=== PATIENT | female | born 1985 | race Caucasian/White ===

== ENCOUNTER 2024-07-02 16:17 | Emergency (ER) | payer BC, SELFPAY ==
[2024-07-02 16:17] VITALS: BMI 28.1
[2024-07-02 16:24] VITALS: BP 173/98
[2024-07-02 16:52] LABS: COVID-19 Antigen Negative (Negative)
--- NOTE | 2024-07-02 17:13 | ED.GENMED ---
History of Present Illness
General
Chief Complaint: Cough
Source: patient
Exam Limitations: none
Time Seen by Provider: 07/02/24 17:12
Nursing documentation reviewed up to this point in time: agreed with
History of Present Illness
History of Present Illness:
38-year-old female presents to the ER for evaluation. Patient reports on Monday 2 days ago she started not feeling well and yesterday started with mild cough. She reports she did not feel right which the prompted her to go to urgent care. She
complains of soreness/pain to her back. She denies any actual shortness of breath. While in urgent care heart was found and very elevated she was sent here to the ER to rule out PE.
She had a low-grade fever here in triage of 100.2. She denies any nasal congestion runny nose. She does have mild cough. She is on control
she does not smoke.
No prior history of DVT PE no familial history of DVT or clotting disorder.
Past History
Past History
ED Past Medical History: None
ED Past Surgical History: and Gynecological (Laparoscopy for embedded intrauterine device)
Social History
Tobacco: Non-smoker
Drug: None
Personal:
Living: with family
Family History
Family History: Other (mother has vertigo)
Review of Systems
Review of Systems
Allergies reviewed?: Yes
All Other Systems: ROS reviewed and negative except as documented in HPI and ROS
Constitutional: Reports no symptoms
Respiratory: Reports cough; Denies trouble breathing
Cardiac: Reports no symptoms; Denies chest pain
ABD/GI: Denies abdominal pain, nausea, vomiting or diarrhea
Musculoskeletal: Reports back pain
Skin: Reports no symptoms
Neurological: Reports no symptoms
Psychiatric: Reports no symptoms
Phy Exam
General Physical Exam
General Presentation: no apparent distress
General age: appears stated age
General Skin: warm and dry
General Habitus: normal
General Mental: alert
General Hydration: appears well hydrated
Cardiovascular Exam
Cardiovascular Exam: no murmur and tachycardia
Pulmonary Exam
Pulmonary Exam: lungs clear and no respiratory distress
Neurological Exam
Neurological Exam: alert and oriented x3
[place] Coma Scale
Eye Opening: Spontaneous
Verbal Response: Oriented
Motor Response: Obeys Commands
GCS Total Score: 15
Musculoskeletal Exam
Musculoskeletal Exam: full ROM
Skin Exam
Skin Exam: normal color and warm/dry
Psychiatric Exam
Psychiatric Exam: normal mood/affect
Course
Orders/Labs/Results
Orders:
Orders
07/02/24 16:18
EKG [Electrocardiogram (*1)] Urgent
Reason for Study: Shortness of Breath
EKG- Treatment ONCE
07/02/24 16:29
COVID-19 Antigen Urgent
Source: Nasal Swab
Influenza A+B Rapid Molecular Urgent
JINA Source: Nasal Swab
Specimen Description:
07/02/24 17:22
CT Chest Pe Study Urgent
Comment:
Reason For Exam: back pain elevated hr
Cardiac Monitoring- Treatment ONCE
IV Insert/Care/Rem.- Treatment PRN
0.9% Sodium Chloride 1000 ml [Nss] 1,000 ml IV BOLUS
07/02/24 17:23
Test Result ONCE
07/02/24 17:51
Complete Blood Count/With Diff Urgent
Comprehensive Metabolic Panel Urgent
HCG, Serum Qualitative Screen Urgent
07/02/24 18:18
Ondansetron Injectable [Zofran] 4 mg .ROUTE .STK-MED ONE
Ondansetron Injectable [Zofran] 4 mg IV NOW STA
Abnormal Lab Results
07/02/24
17:51
Absolute Monos (auto) 0.7 H 10^3/uL
(0.1-0.6)
Monocytes % 13.8 H %
(1.7-9.3)
07/02/24 17:51
07/02/24 17:51
Vital Signs
Initial and Last Documented VS:
Initial Vital Signs
Temp Pulse Resp BP Pulse Ox
100.2 F 128 20 173/98 99
07/02/24 16:24 07/02/24 16:24 07/02/24 16:24 07/02/24 16:24 07/02/24 16:24
Last Documented Vital Signs
Temp Pulse Resp BP Pulse Ox
100.2 F 108 18 125/93 99
07/02/24 16:24 07/02/24 18:15 07/02/24 18:15 07/02/24 18:01 07/02/24 18:15
MDM/Problems Addressed
Differential Diagnosis Includes:
Not limited to COVID, flu, pneumonia viral syndrome , PE
MDM/Problems Addressed:
Patient is a 38-year-old female who has not felt well since yesterday started with cough and presented to urgent care with upper back pain and tachycardia. She was sent here to rule out PE. Patient presents awake alert no acute distress lungs are
clear not hypoxic no shortness of breath however because she is on control with back pain and tachycardia CAT scan was done and negative. She did have a low-grade fever earlier here in the ER.
Patient tested negative for COVID and flu normal labs normal white count.
Patient was given fluids will give Tylenol. On reexam heart rate is better improved to 110. She has no pain at the moment. She is nontoxic likely viral syndrome and likely musculoskeletal pain with a negative CAT scan and patient feeling better
will plan for discharge home likely viral syndrome. pt does not have a family doctor will DC with outpatient follow-up with family practice clinic.
Chronic conditions affecting care:
pt on oral control
*Critical Care Note
Total Time (30-74mins, 75-104mins- exclusive of procedures): Not Applicable
ED Attending Note
-
Portions of this chart may have been created with voice recognition software.� Occasional wrong word or��sound alike� substitutions may have occurred due to the inherent limitations of voice recognition software.
Discharge Plan
Departure
Patient Disposition: Home (Routine Discharge)
Date of Disposition: 07/02/24
Time of Disposition: 19:38
Patient with high blood pressure during this ER visit?: Yes
Condition: Fair
Covid-19: Not Applicable
Discharge Problem:
Acute viral syndrome
Instructions: Viral Exanthem (DC)
Prescriptions:
No Action
vit-iron fum-folic ac 1 EACH tablet
1 ea PO DAILY
ibuprofen [Addaprin] 200 MG tablet
600 mg PO Q6HPRN PRN (Reason: mild cramps) Qty: 30 0RF
oxycodone-acetaminophen 5 MG/325 MG tablet
1 tab PO Q4HPRN PRN (Reason: moderate pain) Qty: 6 0RF
Referrals:
[facility] [Provider Group]
[facility] [Outside]
NONE,* [Family Provider] -
Activity Restrictions/Additional Instructions:
As discussed you likely have a viral syndrome. Your cat scan was negative for pulmonary embolism and negative for pneumonia. You are negative for COVID-negative for flu.
you may take Tylenol and ibuprofen. Get plenty of rest and stay well-hydrated. Your heart rate was elevated when you came in likely from a low-grade fever, however please follow-up with family practice clinic in the next several days for
reevaluation and return if any worsening of symptoms.
Interventions
Interventions:
*Risk Screen - Suicide Last Done: 07/02/24 16:24
*General Assessment Last Done: 07/02/24 16:24
*Neglect/Abuse Screening Last Done: 07/02/24 16:24
ED- Fall Risk Assessment Last Done: 07/02/24 18:15
*ED COVID-19 Vaccine History Last Done: 07/02/24 16:24
ED- Pulmonary Assessment Last Done: 07/02/24 18:15
Discharge Date and Time
Print Language: KISWAHILI
[2024-07-02] MEDS: NSS 1000 IV (17:52)
[2024-07-02 18:01] VITALS: BP 125/93
[2024-07-02 18:05] LABS: % Basophils 0.4 % (0-2); % Eosinophils 0.6 % (0-6); % Immature Granulocytes 0.4 % (0-0.5); % Lymphocytes 24.8 % (20.5-51.1); % Monocytes 13.8 % (1.7-9.3); Absolute Lymphocytes 1.3 10^3/uL (1.2-3.4); Absolute Monocytes 0.7 10^3/uL (0.1-0.6); Absolute Neutrophils 3.1 10^3/uL (1.4-6.5); Hemoglobin 14.8 g/dL (12.0-16.0); Mean Corp Hgb Conc. 34.4 g/dL (33.0-37.0); Mean Corpuscular Hgb 29.7 pg (27.0-31.0); Mean Corpuscular Volume 86.2 fL (81.0-99.0); Mean Platelet Volume 9.3 fL (7.4-10.4); Nucleated Red Blood Cells % 0 %; Platelet Count 220 10^3/uL (130-400); Red Blood Cell Count 4.99 10^6/uL (4.20-5.40); Red Cell Dist. Width 12.2 % (11.5-14.5); White Blood Cell Count 5.1 10^3/uL (4.8-10.8)
[2024-07-02 18:12] LABS: HCG, Serum Qualitative Screen Negative
[2024-07-02 18:15] LABS: ALT (SGPT) 22 U/L (0-35); AST (SGOT) 24 U/L (14-36); Albumin 4.6 g/dl (3.5-5.0); Alkaline Phosphatase 41 U/L (38-126); Blood Urea Nitrogen 13 mg/dl (7-17); Calcium 9.5 mg/dl (8.4-10.2); Carbon Dioxide 25 mmol/L (22-30); Chloride 102 mmol/L (98-107); Estimated Creatinine Clearance 70 ml/min; Glucose 95 mg/dl (70-99); Potassium 4.1 mmol/L (3.5-5.1); Sodium 140 mmol/L (135-145); Total Bilirubin 0.4 mg/dl (0.2-1.3); Total Protein 7.5 g/dl (6.3-8.2); eGFR > 60.00
[2024-07-02] MEDS: ZOFRAN 4 MG IV (18:19)
[2024-07-02 19:19] VITALS: BP 122/75
[2024-07-02 20:00] VITALS: BP 122/80
[2024-07-02] MEDS: TYLENOL 1000 MG PO (20:04)
== END 2024-07-02 20:13 | disposition home or self-care (01) ==
LOC: EMR 16:17
PROVIDERS: Nurse Practitioner; EMERGENCY PHYSICIAN Emergency Medicine
DX: B34.9 Viral infection, unspecified (principal)
CPT/HCPCS: 99284; 96374; 96361; 71275; 80053; 84703; 85025; 87502; 87811; 93005; Q9967

== ENCOUNTER 2025-01-20 08:22 | Emergency (ER) | payer BC, SELFPAY ==
[2025-01-20 08:29] VITALS: BP 141/104
[2025-01-20 08:45] VITALS: BP 128/97
--- NOTE | 2025-01-20 08:58 | ED.GENMED ---
History of Present Illness
General
Chief Complaint: Medication Reaction
Time Seen by Provider: 01/20/25 08:37
History of Present Illness
History of Present Illness:
Patient is a 39-year-old woman with no past medical history presenting to the emergency department with palpitations. Patient states for the past 3 days she has been feeling her heart is racing. She states that about 6 days ago she went to urgent
care for a rash who prescribed her 80 mg of prednisone for 12 days. She denies any lightheadedness dizziness. She denies any fevers chills cough congestion or other URI symptoms. She did cut off caffeine for the past few days. No history of
thyroid abnormalities. No family history of blood clots. She is on no hormonal OCP. No chest pain. No difficulty breathing. No nausea vomiting. She does state that the last time this happened to her she was diagnosed with pneumonia a few days
later.
Past History
Past History
ED Past Medical History: None
ED Past Surgical History: and Gynecological (Laparoscopy for embedded intrauterine device)
Social History
Tobacco: Non-smoker
Drug: None
Personal:
Living: with family
Family History
Family History: Other (mother has vertigo)
Phy Exam
Physical Exam
Physical Exam:
GENERAL: in no acute distress
HEENT: normocephalic, extraocular movements intact, moist oral mucosa
NECK: normal inspection
RESPIRATORY: no respiratory distress, clear to auscultation bilaterally
CARDIOVASCULAR: regular rate and rhythm
ABDOMEN/: soft, non-distended, non-tender to palpation, no rebound or guarding
EXTREMITIES: non-tender, no edema/swelling
NEUROLOGIC: awake and alert, moves all extremities
SKIN: warm
Course
Orders/Labs/Results
Orders:
Orders
01/20/25 08:24
Electrocardiogram (*1) Urgent
Reason for Study: Palpitations
01/20/25 08:25
EKG- Treatment ONCE
01/20/25 08:49
Test Result ONCE
01/20/25 08:52
Basic Metabolic Panel Urgent
Complete Blood Count/With Diff Urgent
HCG, Serum Qualitative Screen Urgent
Magnesium Urgent
Thyroid profile [TSH Reflex To Free T4] Urgent
01/20/25 08:59
D-Dimer Urgent
Abnormal Lab Results
01/20/25
08:52
WBC 18.2 H 10^3/uL
(4.8-10.8)
RBC 5.42 H 10^6/uL
(4.20-5.40)
Hgb 16.7 H g/dL
(12.0-16.0)
Hct 47.7 H %
(37.0-47.0)
Abs Immat Gran (auto) 0.5 H 10^3/uL
(0-0.05)
Absolute Neuts (auto) 12.9 H 10^3/uL
(1.4-6.5)
Absolute Monos (auto) 1.5 H 10^3/uL
(0.1-0.6)
Immature Gran % 2.7 H %
(0-0.5)
Lymphocytes % 18.0 L %
(20.5-51.1)
BUN 20 H mg/dl
(7-17)
Magnesium 2.4 H mg/dl
(1.6-2.3)
01/20/25 08:52
01/20/25 08:52
Vital Signs
Initial and Last Documented VS:
Initial Vital Signs
Temp Pulse Resp BP Pulse Ox
97.8 F 118 20 141/104 97
01/20/25 08:29 01/20/25 08:29 01/20/25 08:29 01/20/25 08:29 01/20/25 08:29
Last Documented Vital Signs
Temp Pulse Resp BP Pulse Ox
97.8 F 98 17 119/96 95
01/20/25 08:29 01/20/25 09:00 01/20/25 09:00 01/20/25 09:00 01/20/25 09:00
MDM/Problems Addressed
Differential Diagnosis Includes:
Patient is a 39-year-old woman presenting to the emergency department with palpitations and concern for an elevated heart rate. On arrival her heart rate was documented as 118 however during my evaluation patient's heart rate was normal sinus
rhythm in the 90s. Occasionally it did increase to the low 100s at that time that was in sinus. Exam was otherwise reassuring. Differential is broad but consists of steroid side effect electrolyte derangement versus thyroid abnormality versus PE
though less likely as patient has no other signs or symptoms. EKG per my interpretation sinus tachycardia. Will check blood work including dimer and thyroid levels.
*Critical Care Note
Total Time (30-74mins, 75-104mins- exclusive of procedures): Not Applicable
Update Note
Update Note:
Blood work does show leukocytosis. Could be secondary to steroids. Patient is overall well-appearing with no infectious signs or symptoms less likely to be infectious. However patient does state that last time she had palpitations was secondary
to pneumonia. I did advise that this could be the beginnings of an illness. She will have repeat blood work completed by her primary care doctor to make sure that it trends down. Otherwise blood work unremarkable. Will discharge patient at this
time.
ED Attending Note
-
Portions of this chart may have been created with voice recognition software.� Occasional wrong word or��sound alike� substitutions may have occurred due to the inherent limitations of voice recognition software.
Discharge Plan
Departure
Patient Disposition: Home (Routine Discharge)
Date of Disposition: 01/20/25
Time of Disposition: 10:21
Patient with high blood pressure during this ER visit?: No
Discharge Problem:
Palpitations
Prescriptions:
No Action
vit-iron fum-folic ac 1 EACH tablet
1 ea PO DAILY
ibuprofen [Addaprin] 200 MG tablet
600 mg PO Q6HPRN PRN (Reason: mild cramps) Qty: 30 0RF
oxycodone-acetaminophen 5 MG/325 MG tablet
1 tab PO Q4HPRN PRN (Reason: moderate pain) Qty: 6 0RF
Referrals:
NONE,* [Family Provider] -
Activity Restrictions/Additional Instructions:
You were seen in the Emergency Department today for palpitations. While you were here we performed blood work, which did show an elevated white count. This could be from your steroids. Please make sure you have your blood work repeated by your
primary care doctor. If you continue to have these palpitations please make sure you follow-up with your primary care doctor to get outpatient Holter monitor.
We would like for you to follow up with your primary care physician for further evaluation. If you experience fever, worsening of your symptoms, or develop any other new or concerning symptoms, please return to the Emergency Department immediately.
Please see the attached sheet for additional information.
Interventions
Interventions:
*Risk Screen - Suicide Last Done: 01/20/25 08:29
*General Assessment Last Done: 01/20/25 08:29
*Neglect/Abuse Screening Last Done: 01/20/25 08:33
*ED- Fall Risk Assessment Last Done: 01/20/25 08:51
*ED COVID-19 Vaccine History Last Done: 01/20/25 08:51
ED-Skin Assessment Last Done: 01/20/25 08:50
ED- Pulmonary Assessment Last Done: 01/20/25 08:50
ED-EENT Assessment Last Done: 01/20/25 08:50
Discharge Date and Time
Print Language: SPANISH
[2025-01-20 09:00] VITALS: BP 119/96
[2025-01-20 09:05] VITALS: BMI 26.7
[2025-01-20 09:12] LABS: % Basophils 0.2 % (0-2); % Eosinophils 0.2 % (0-6); % Immature Granulocytes 2.7 % (0-0.5); % Monocytes 8.3 % (1.7-9.3); % Neutrophils 70.6 % (42.2-75.2); Absolute Immature Granulocytes 0.5 10^3/uL (0-0.05); Absolute Lymphocytes 3.3 10^3/uL (1.2-3.4); Absolute Monocytes 1.5 10^3/uL (0.1-0.6); Absolute Neutrophils 12.9 10^3/uL (1.4-6.5); Hematocrit 47.7 % (37.0-47.0); Hemoglobin 16.7 g/dL (12.0-16.0); Mean Corpuscular Hgb 30.8 pg (27.0-31.0); Mean Platelet Volume 8.9 fL (7.4-10.4); Nucleated Red Blood Cells % 0 %; Platelet Count 294 10^3/uL (130-400); Red Blood Cell Count 5.42 10^6/uL (4.20-5.40); White Blood Cell Count 18.2 10^3/uL (4.8-10.8)
[2025-01-20 09:29] LABS: D-Dimer 0.28 ug/mlFEU (0.00-0.50)
[2025-01-20 09:30] LABS: HCG, Serum Qualitative Screen Negative
[2025-01-20 09:32] LABS: Blood Urea Nitrogen 20 mg/dl (7-17); Calcium 9.5 mg/dl (8.4-10.2); Carbon Dioxide 26 mmol/L (22-30); Chloride 104 mmol/L (98-107); Estimated Creatinine Clearance 79 ml/min; Glucose 74 mg/dl (70-99); Magnesium 2.4 mg/dl (1.6-2.3); Potassium 4.4 mmol/L (3.5-5.1); Sodium 139 mmol/L (135-145); eGFR > 60.00
[2025-01-20 10:00] VITALS: BP 111/89
[2025-01-20 10:02] LABS: TSH Reflex To Free T4 0.53 uIU/ml (0.47-4.68)
== END 2025-01-20 10:39 | disposition home or self-care (01) ==
LOC: EMR 08:22
PROVIDERS: EMERGENCY PHYSICIAN Student in an Organized Health Care Education/Training Program
DX: R00.2 Palpitations (principal)
CPT/HCPCS: 99284; 80048; 83735; 84443; 84703; 85025; 85379; 93005

== ENCOUNTER 2025-05-07 08:24 | Emergency (ER) | payer BC, SELFPAY ==
[2025-05-07 08:35] VITALS: BP 121/84
[2025-05-07 08:36] VITALS: BP 132/84
--- NOTE | 2025-05-07 08:55 | ED.GENMED ---
History of Present Illness
General
Chief Complaint: Musculo-Skeletal Complaint
Time Seen by Provider: 05/07/25 08:51
History of Present Illness
History of Present Illness:
PAST MEDICAL HISTORY AND REVIEW OF OLD RECORDS
- The patient has history of migraines. I reviewed records. The patient was seen here this past December with palpitations at that time leukocytosis was noted
Note:
CHIEF COMPLAINTS
Shoulder pain following a fall in the shower.
HISTORY OF PRESENT ILLNESS
The patient is a 39-year-old female who presents with shoulder pain after slipping in the shower four nights ago. She reports that her whole right side impacted the shower floor during the fall. There is no significant pain reported in the legs,
although the patient mentioned minor swelling in the knee without any bruising or cuts. No abdominal bruising was noted, and there is no tenderness in the abdomen. The patient initially thought she injured her elbow due to the impact but later
assessed the shoulder to be the main area of concern. She has not sought previous imaging or evaluations for these concerns.
On examination, there is some tenderness noted in the rotator cuff area with limited range of motion particularly in abduction, as the patient cannot elevate the arm higher than holding her hand at shoulder level. This limitation affects her ability
to perform routine tasks like placing her phone in a back pocket.
The patient has opted against receiving a non-narcotic pain medication injection (ketorolac) but agreed to use ibuprofen for pain management. A sling will also be provided to alleviate pressure on the shoulder.
PHYSICAL EXAM
General: Alert, no acute distress.
Musculoskeletal: Limited range of motion in the right shoulder, specifically limited abduction. Tenderness present in the rotator cuff region.
PLAN
An x-ray of the shoulder will be obtained to rule out any fractures. The patient will be provided with ibuprofen for pain relief and a sling for support.
DIFFERENTIAL DIAGNOSIS
The Differential Diagnosis includes, in no particular order and is not limited to:
- Rotator cuff tear
- Shoulder contusion
- Sprain/strain of shoulder
- Subacromial bursitis
- Shoulder dislocation
- Proximal humerus fracture
- Glenoid labrum tear
- Acromioclavicular joint injury
- Brachial plexus injury
- Referred pain from cervical spine
MEDICATION RECONCILIATION
Ibuprofen will be provided for pain management.
FOLLOW-UP INSTRUCTIONS
The patient will be referred to Dr. Sharma, an clinical training specialist, for further evaluation and management.
MEDICAL DECISION MAKING
- Number and Complexity of Problems Addressed: Chronic conditions affecting care: [None mentioned]
- Data:
Category 1:
My independent review of the upcoming x-ray will assess potential fractures.
- Risk:
Prescription medication was considered and Ibuprofen was provided.
DIAGNOSIS
Rotator cuff injury suspected, pending further evaluation with imaging.
RADIOLOGY
- X-ray right shoulder obtained. I see no acute abnormality.
UPDATE
-SUMMARY OF ENCOUNTER
The patient, a 39-year-old female, presented to the emergency department with right shoulder pain following a fall in the shower. The fall resulted in the impact of her whole right side on the floor. The patient exhibited tenderness in the rotator
cuff area and limited range of motion, particularly in abduction. An x-ray was obtained, and although no fractures were visible, suspicion of a potential rotator cuff injury was discussed. The patient received a dose of ibuprofen (Motrin) for pain
management and was advised to use a sling to alleviate shoulder pressure. Follow-up was recommended with an clinical training specialist, Dr. Sharma, for further evaluation and management.
ASSESSMENT
Suspected rotator cuff injury with limited range of motion and tenderness in the right shoulder.
PLAN
- Utilize a sling to decrease shoulder pressure.
- Continue taking ibuprofen for pain management.
- Refer to Dr. Sharma, an clinical training specialist, for further evaluation.
INDEPENDENT REVIEW OF LABS AND INTERPRETATION OF TESTS
- My independent interpretation of the shoulder x-ray indicates no fractures.
FOLLOW-UP INSTRUCTIONS
Please call Dr. Gant office immediately to schedule a follow-up visit for further evaluation of the shoulder injury.
MEDICATION RECONCILIATION
A dose of ibuprofen was administered during the emergency department visit.
MEDICAL DECISION MAKING
1. Number and Complexity of Problems Addressed:
- Chronic conditions affecting care: None mentioned
- Differential Diagnosis: Rotator cuff tear, shoulder contusion, sprain/strain of shoulder, subacromial bursitis, shoulder dislocation, proximal humerus fracture, glenoid labrum tear, acromioclavicular joint injury, brachial plexus injury, referred
pain from cervical spine.
2. Data:
- Category 1: Tests and documents: X-ray of the shoulder was independently reviewed.
- Category 2: N/A
- Category 3: N/A
3. Risk:
- Prescription medication was prescribed: Ibuprofen.
DIAGNOSIS
- Rotator cuff tear, suspected. (ICD-10 Code: S46.011A)
Past History
Past History
ED Past Medical History: None
ED Past Surgical History: and Gynecological (Laparoscopy for embedded intrauterine device)
Social History
Tobacco: Non-smoker
Drug: None
Personal:
Living: with family
Family History
Family History: Other (mother has vertigo)
Phy Exam
Physical Exam
Physical Exam:
See HPI
Course
Orders/Labs/Results
Orders:
Orders
05/07/25 09:00
Sling Right-Treatment ONCE
05/07/25 09:01
Ibuprofen [Motrin] 600 mg PO NOW STA
CR Shoulder, Trauma - Right Urgent
Comment:
Reason For Exam: fall pain tender prox hum
Vital Signs
Initial and Last Documented VS:
Initial Vital Signs
Temp Pulse Resp BP Pulse Ox
37.2 C 77 16 121/84 100
05/07/25 08:35 05/07/25 08:35 05/07/25 08:35 05/07/25 08:35 05/07/25 08:35
Last Documented Vital Signs
Temp Pulse Resp BP Pulse Ox
36.7 C 81 16 132/84 98
05/07/25 08:36 05/07/25 08:36 05/07/25 08:36 05/07/25 08:36 05/07/25 08:55
*Pulse Oximetry
SaO2: 98
Oxygen Mode of Delivery: Room air
Patient hypoxic: no
*Critical Care Note
Total Time (30-74mins, 75-104mins- exclusive of procedures): Not Applicable
ED Attending Note
-
Portions of this chart may have been created with voice recognition software.� Occasional wrong word or��sound alike� substitutions may have occurred due to the inherent limitations of voice recognition software.
Discharge Plan
Departure
Prescriptions:
No Action
vit-iron fum-folic ac 1 EACH tablet
1 ea PO DAILY
ibuprofen [Addaprin] 200 MG tablet
600 mg PO Q6HPRN PRN (Reason: mild cramps) Qty: 30 0RF
oxycodone-acetaminophen 5 MG/325 MG tablet
1 tab PO Q4HPRN PRN (Reason: moderate pain) Qty: 6 0RF
Referrals:
Shama Andrade PA-C [Family Provider, Family Practice]
Interventions
Interventions:
*Risk Screen - Suicide Last Done: 05/07/25 08:36
*Neglect/Abuse Screening Last Done: 05/07/25 08:36
ED-Musculoskeletal Assessment Last Done: 05/07/25 09:32
Discharge Date and Time
Print Language: GERMAN
[2025-05-07] MEDS: MOTRIN 600 MG PO (09:30)
== END 2025-05-07 10:28 | disposition home or self-care (01) ==
LOC: EMR 08:24
PROVIDERS: EMERGENCY PHYSICIAN Emergency Medicine; FAMILY PHYSICIAN Physician Assistant Medical
DX: S46.001A Unspecified injury of muscle(s) and tendon(s) of the rotator cuff of right shoulder, initial encounter (principal); W18.2XXA Fall in (into) shower or empty bathtub, initial encounter
CPT/HCPCS: 99283; 73030